=== PATIENT | male | born 1980 | race Caucasian/White ===

== ENCOUNTER 2016-12-06 21:41 | Emergency (ER) | payer OTHER ==
[~2016-12-06] VITALS: Ht 187.9 cm; Wt 83.9 kg
[2016-12-06 21:48] VITALS: BP 158/96
[2016-12-06] MEDS ORDERED: VIBRAMYCIN100 MG PO (22:18)
== END 2016-12-06 22:20 | disposition home or self-care (01) ==
LOC: ED 21:41
DX: S41.152A Open bite of left upper arm, initial encounter (principal); F17.200 Nicotine dependence, unspecified, uncomplicated; Z88.0 Allergy status to penicillin; Z88.2 Allergy status to sulfonamides; W54.0XXA Bitten by dog, initial encounter; Y93.89 Activity, other specified; Y92.89 Other specified places as the place of occurrence of the external cause; Y99.9 Unspecified external cause status